=== PATIENT | male | born 2000 | race Caucasian/White ===

== ENCOUNTER 2019-02-18 19:37 | Emergency (ER) | payer OTHER ==
[2019-02-18 19:56] VITALS: BP 136/91
--- NOTE | 2019-02-18 20:08 | UC ---
Complaint Male HPI - HPI Summary HPI Summary: Mr. Livingston visits some lesions in his groin area for 2 months and is concerned it could be STDs specifically herpes or warts. They don't hurt or itch and essentially haven't changed in that amount of time. - History of Current Complaint Chief Complaint: UCSTDScreening Stated Complaint: STD TESTING Time Seen by Provider: 02/18/19 19:42 Pain Intensity: 0 - Allergies/Home Medications Allergies/Adverse Reactions: Allergies Allergy/AdvReac Type Severity Reaction Status Date / Time No Known Allergies Allergy Verified 02/18/19 19:54 Home Medications: Home Medications NK [No Home Medications Reported] 02/18/19 [History Confirmed 02/18/19] PMH/Surg Hx/FS Hx/Imm Hx Previously Healthy: Yes - Surgical History Surgical History: None - Social History Alcohol Use: Occasionally Substance Use Type: None Smoking Status (MU): Never Smoked Tobacco Review of Systems All Other Systems Reviewed And Are Negative: Yes Physical Exam - Summary Physical Exam Summary: Is nontoxic in appearance with with a low-grade fever of 100.7 Triage Information Reviewed: Yes Appearance: Well-Appearing Vital Signs: Initial Vital Signs Temp 100.7 F 02/18/19 19:54 Pulse 66 02/18/19 19:54 Resp 18 02/18/19 19:54 BP 136/91 02/18/19 19:54 Pulse Ox 99 02/18/19 19:54 Vital Signs Reviewed: Yes Eyes: Positive: Conjunctiva Clear ENT: Positive: Normal ENT inspection Male Genital Exam: Positive: Normal Genitalia, Lesions - 4 or 5 small (less than half a centimeter) areas erythema in his pubic hair in the suprapubic area. There are no vesicles or warts. The lesions jim.. Negative: Inguinal Tenderness, Urethral Discharge Complaint Male Course/Dx - Course Course Of Treatment: Is unclear to me what these lesions are. They do not look to be any tenderness chancre or chancroid, herpetic lesions or warts. I reassured him that they would go away and recommended follow-up if they worsen or do not resolve in the next few weeks. - Differential Dx/Diagnosis Provider Diagnosis: Rash and nonspecific skin eruption Discharge - Sign-Out/Discharge Documenting (check all that apply): Patient Departure All imaging exams completed and their final reports reviewed: No Studies - Discharge Plan Condition: Stable Disposition: HOME Patient Education Materials: Acute Rash (ED) Referrals: No Primary Care Phys,NOPCP [Primary Care Provider] - - Billing Disposition and Condition Condition: STABLE Disposition: Home
[2019-02-20 13:21] LABS: Chlamydia trachomatis NAA Negative (Negative); Neisseria gonorrhoeae (GC) NAA Negative (Negative)
== END 2019-02-18 20:24 | disposition home or self-care (01) ==
LOC: UCEAST 19:37
DX: R21 Rash and other nonspecific skin eruption (principal)
CPT/HCPCS: 87491; 87591; 99201; G0463